=== PATIENT | male | born 1975 | race Caucasian/White ===

== ENCOUNTER 2019-09-10 16:04 | Inpatient (IN) | payer MEDICARE, MEDICAID, OTHER ==
[2019-09-10 17:07] VITALS: BMI 24.2
[2019-09-10] MEDS ORDERED: Triple Antibiotic Oint 1 GM Packet TOP PRN (18:26)
[2019-09-10] MEDS ORDERED: Bisacodyl 10 MG SUPP PR PRN (18:26)
--- NOTE | 2019-09-10 19:02 | HP ---
HISTORY OF PRESENT ILLNESS: Mr. Metz is a 44-year-old white male from the [facility] with mental retardation and cerebral palsy. He was admitted to [facility] from the [facility] with symptoms of cough and hypoxia. He was admitted with diagnosis of septic shock, requiring pressors; acute hypoxic respiratory failure, requiring intubation; polymicrobial left lower lobe pneumonia secondary to aspiration; polymicrobial cystitis; and acute on chronic anemia. He was noted to be COVID 19 negative. He is also anemic, and he required a unit of packed red blood cells at [facility].. He was admitted to the intensive care unit, and since had a PEG tube, he has had enteral feedings. His enteral feedings include Osmolite 1.2 at 60mL to 50 mL 24 hours a day and free water flushes of 200 mL every 8 hours with 30ml before and after meds. He has been stabilized and now was transferred to [facility] for physical therapy and occupational therapy and to finish his Levaquin 500 mg orally once a day through September 14 and follow his cefepime 1 g q 8hrs through September 14. PAST MEDICAL HISTORY: Extensive. 1. Abnormal results of liver function studies. 2. Acute respiratory failure with hypoxia. 3. Altered mental status. 4. Chronic anemia. 5. Bacteriuria. 6. Black stools. 7. History of Clostridium difficile infection in the past. 8. Compression fracture of vertebral column. 9. Cutaneous abscess of the groin. 10. Diarrhea. 11. Duodenitis without bleeding. 12. Dysphagia. 13. GERD. 14. Hypothermia. 15. Hypothyroidism. 16. Impacted cerumen. 17. Incontinent of bowel. 18. Incontinent of urine. 19. Fatigue and malaise. 20. Malodorous urine. 21. Melena. 22. Mental retardation. 23. Normocytic anemia. 24. Oropharyngeal dysphagia. 25. Osteoarthritis. 26. Osteoporosis. 27. Pneumonia. 28. Profound intellectual disabilities. 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 30. Recurrent urinary tract infections. 31. Seizure disorder. 32. Sialorrhea. 33. Sinus bradycardia. 34. Sleep-related bruxism. 35. Speech impairment. 36. Tetraplegic cerebral palsy. 37. Urinary continence. PAST SURGICAL HISTORY: 1. Cholecystectomy. 2. . 3. Esophagoscopy with percutaneous gastrostomy tube placement. 4. Fracture surgery. 5. Hernia repair. 6. VNS implant/replacement. FAMILY HISTORY: Unobtainable since the patient is nonverbal. [facility] [employer] is Kyleigh Govea [phone]! ALLERGIES: THE PATIENT IS NOTED TO BE ALLERGIC TO THE FOLLOWINGS: 1. ADHESIVE. 2. CARBAMAZEPINE. 3. ESLICARBAZEPINE. 4. LACTOSE. 5. NSAIDS. SOCIAL HISTORY: Reveals the patient is unable to smoke or drink alcohol. He is totally dependent on care from his caregivers at the [facility]. REVIEW OF SYSTEMS: Unable to be accomplished because the patient is unable to speak. PHYSICAL EXAMINATION: GENERAL: This is an appropriate looking 44-year-old white male, who is lying on his right side, appearing at me as a walk in with blue eyes. He seems somewhat inquisitive and follows me around as I move around the room, but does not speak. I do ask him questions, he does not speak. He does grunt a little bit, but does not seem to know how to speak. HEENT: Reveals normocephalic and nontraumatic cranium. The pupils are equally round and reactive. Extraocular movements are intact. The nose and throat are somewhat dry, but clear. NECK: Supple without masses, nodes, or bruits. CHEST: Clear to auscultation. The patient does have occasional cough and occasionally, he has some rhonchi and decreased breath sounds in both lower lobes. HEART: Reveals a regular rate and rhythm without murmurs, gallops, or rubs. ABDOMEN: Reveals a PEG tube which has been replace, with a new tube, midline upper area. No rebound or guarding is noted. Normal bowel sounds are heard in all 4 quadrants. : Grossly unremarkable. EXTREMITIES: Reveal bilateral very pale with muscle wasting. The patient does have early flexion contractures of both lower extremities. The patient tends to grunt when I move his extremities. No clubbing, cyanosis, or edema is noted. ASSESSMENT & PLAN: 1. Aspiration pneumonia due to regurgitated gastric secretions. 2. Hypothyroidism. 3. Dysphagia. 4. PEG tube placement. 5. Acute respiratory failure with hypoxia. 6. Urinary tract infection. 7. Intellectual disability. 8. Acute cystitis without hematuria. 9. Pneumonia of both lungs secondary to Pseudomonas species. 10. Sinus bradycardia. 11. COVID-19 ruled out. 12. The patient is status post ICU management with pressors until that was extubated on 09/01/2019. 13. Continue IV cefepime daily q 8hrs, through September 14. 14. Continue Levaquin 500 mg orally daily until September 14. 15. Lactobacillus. 16. Monitor the patient for anemia. 17. Tube feedings. 18. DVT prophylaxis with SCDs. 19. [facility] 20. Full code Job ID: [id number] MTDD
[2019-09-10] MEDS ORDERED: DIAZEPAM 15 MG PR PRN (19:15)
[2019-09-10] MEDS ORDERED: PERAMPANEL 12 MG PER TUBE SCH (21:00)
[2019-09-10] MEDS ORDERED: GLYCOPYRROLATE 1 MG PER TUBE SCH (21:00)
[2019-09-10] MEDS: Nystatin Powder 15 GM BOT TOP SCH (21:38)
[2019-09-10] MEDS: Cefepime 1 GM in Sodium Chloride 0.9% 100 ML IVPB SCH (21:38)
[2019-09-10] MEDS: levETIRAcetam 500 mg/5 ml Oral Solution PER TUBE SCH (21:38)
[2019-09-10] MEDS: Acetaminophen 325 MG TAB PER TUBE PRN (21:39)
[2019-09-10] MEDS: Senokot S 8.6-50 MG TAB PER TUBE SCH (21:39)
[2019-09-10] MEDS: Lacosamide 50 mg Tablet PER TUBE SCH (21:39)
[2019-09-10] MEDS: Simethicone Chewable 80 MG TAB PER TUBE SCH (21:39)
[2019-09-10] MEDS ORDERED: Cefepime 1 GM VIAL IVPB SCH (22:00)
[2019-09-11] MEDS: Cefepime 1 GM in Sodium Chloride 0.9% 100 ML IVPB SCH ×3 (05:42→21:25)
[2019-09-11 06:03] LABS: ALT (SGPT) 35 U/L (8-55); AST (SGOT) 22 U/L (5-34); Albumin 3.1 g/dL (3.5-5.0); Alkaline Phosphatase 154 U/L (40-110); Anion Gap 13 mmol/L (10-20); BUN (Urea Nitrogen) 19 mg/dL (8.9-20.6); Bilirubin, Total 0.2 mg/dL (0.2-1.2); Calc. Creatinine Clearance 142 mL/min (70-130); Calcium 9.3 mg/dL (7.8-10.44); Carbon Dioxide 29 mmol/L (22-29); Chloride 103 mmol/L (98-107); Estimated GFR-MDRD Greater than 90; Globulin 3.8 g/dL (2.4-3.5); Glucose 92 mg/dL (70-105); Potassium 4.5 mmol/L (3.5-5.1); Protein, Total 6.9 g/dL (6.0-8.3); Sodium 140 mmol/L (136-145)
[2019-09-11 06:12] LABS: #Basophils 0.1 thou/uL (0.0-0.2); #Eosinphils 0.3 thou/uL (0.0-0.7); #Lymphocytes 1.4 thou/uL (1.20-3.40); #Monocytes 0.7 thou/uL (0.11-0.59); #Neutrophils 3.4 thou/uL (1.40-6.50); %Basophils 0.9 % (0.0-1.0); %Eosinophils 4.3 % (0.0-10.0); %Lymphocytes 24.8 % (21.0-51.0); %Monocytes 11.8 % (0.0-10.0); %Neutrophils 58.1 % (42.0-75.0); Anisocytosis MODERATE=16-30 cells (100X) (0-5/hpf); Band 6 % (5-11); Eosinophils 4 % (0-10); Hemoglobin 8.3 g/dL (14.0-18.0); Hypochromia SLIGHT = 6-15 cells (100X) (0-5/hpf); Large Platelets SLIGHT; Lymphocytes 22 % (21-51); MDiff Complete? YES; Mean Corpuscular HGB CONC 32.1 g/dL (32.0-36.0); Mean Corpuscular Hemoglobin 31.8 pg (27.0-31.0); Mean Platelet Volume 9.1 fL (7.4-10.4); Monocytes 8 % (0-10); Neutrophil 59 % (42-75); Nucleated RBC 1 % (0); Platelet Count 250 thou/uL (130-400); Platelet Morphology Comment Appears Adequate; Poikilocytosis MODERATE=16-30 cells (100X) (0-5/hpf); RBC Distribution Width 18.4 % (11.5-14.5); Reactive Lymphocytes 1 % (0-10); Red Blood Cell (RBC) Count 2.61 mill/uL (4.70-6.10); Stomatocytes MODERATE= 6-15 cells (100X) (0-1/hpf); Target Cells MODERATE= 6-15 cells (100X) (0-1/hpf); White Blood Cell (WBC) Count 5.8 thou/uL (4.8-10.8)
[2019-09-11] MEDS: Floranex Packet PER TUBE SCH (09:53)
[2019-09-11] MEDS: levETIRAcetam 500 mg/5 ml Oral Solution PER TUBE SCH ×2 (09:53→21:26)
[2019-09-11] MEDS: Polyethylene Glycol 3350 17 GM Packet PER TUBE SCH (09:53)
[2019-09-11] MEDS: Pantoprazole 40 MG GRANULES PACKET PER TUBE SCH ×2 (09:53→21:23)
[2019-09-11] MEDS: Simethicone Chewable 80 MG TAB PER TUBE SCH ×3 (09:54→21:24)
[2019-09-11] MEDS: Folic Acid 1 MG TAB PER TUBE SCH (09:54)
[2019-09-11] MEDS: Senokot S 8.6-50 MG TAB PER TUBE SCH ×2 (09:54→21:24)
[2019-09-11] MEDS: Lacosamide 50 mg Tablet PER TUBE SCH ×2 (09:54→21:23)
[2019-09-11] MEDS: Levothyroxine Sodium 50 MCG TAB PER TUBE SCH (09:54)
[2019-09-11] MEDS: Nystatin Powder 15 GM BOT TOP SCH ×2 (10:23→21:24)
[2019-09-11] MEDS ORDERED: Sodium Chloride 0.9% 20 ML ONE (14:31)
[2019-09-11 17:50] LABS: Bilirubin Negative (Negative); Blood, Urine Negative (Negative); Clarity Clear (Clear); Glucose, Urine (Dipstick) Negative (Negative); Leukocyte Negative (Negative); Nitrite Negative (Negative); Protein, Urine (Dipstick) Negative (Neg-Trace); Urobilinogen 0.2 mg/dL (Less than 2)
[2019-09-11 18:07] LABS: Bacteria/HPF None Seen HPF (None Seen); RBC/HPF None Seen HPF (0-3); Squamous Epithelial 0-3 HPF (0-3); WBC/HPF None Seen HPF (0-3)
--- NOTE | 2019-09-11 19:36 | PRG ---
DATE OF SERVICE: 09/11/2019 SUBJECTIVE: Mr. Metz is a very pleasant 44-year-old white male who lives at [facility]. He has long-term history of mental retardation and cerebral palsy. He is admitted to [facility] with symptoms of hypoxemia and respiratory failure. He is diagnosed with septic shock, requiring pressures, requiring intubation, and requiring IV antibiotics. He is diagnosed with left lower lobe pneumonia, which eventually was bilateral pneumonia secondary to aspiration. He had also a polymicrobial cystitis and acute on chronic anemia. He was tested for COVID-19 and was negative. He did receive a unit of packed red blood cells while he was there. He was eventually extubated and his feedings revealed Osmolite 1.2 at 60 mL q.24 hours and 200 mL flushes every 8 hours with normal saline. The patient has been at [facility] for approximately 24 hours. LABORATORY DATA: Laboratories reveal white count 5800, hemoglobin 8.3, hematocrit 25.9, platelet count 250,000. The patient has 11.8 monocytes. Sodium is 140, potassium 4.5, chloride 103, carbon dioxide 29, which are all normal. The patient's BUN is 19, creatinine 0.63. GFR is greater than 90. Glucose is 90. Alkaline phosphatase is slightly elevated at 154 with albumin low at 3.1, globulin high at 3.8. Urinalysis was done, which was unremarkable. OBJECTIVE: VITAL SIGNS: Reveal blood pressure 124/76. The patient's oxygen saturation ranges from 91% to 98% on 2 L nasal cannula, which is pretty steady over the day. T-max was 97.4. Pulse was 78, and respirations was 20, all day. GENERAL: This is a well-developed, well-nourished, awake and very inquisitive 44-year-old white male, who looks at me and follows you as you go around the room and examined him. HEENT: Reveals normocephalic and nontraumatic cranium. Pupils equally round and reactive. Extraocular movements are intact. Nose and throat are dry. Multiple dental caries. Occasional grunt as have you seen. NECK: Supple without masses, nodes, or bruits. CHEST: Clear to auscultation. No cough is noted while I was in the room for approximately 15 to 20 minutes. The patient's decreased breath sounds are noted in both lower lobes, most likely because of shallow breathing. HEART: Reveals a regular rate and rhythm without murmurs, gallops, or rubs. ABDOMEN: Soft and nontender without organomegaly. Normal bowel sounds are heard in all 4 quadrants. PEG tube is in place midline, not draining, not red, not irritated. : Deferred. EXTREMITIES: Reveal no clubbing, cyanosis, or edema, but some muscle wasting and some lower extremity flexion contractures. ASSESSMENT AND PLAN: 1. Aspiration pneumonia secondary to regurgitated gastric secretions. 2. Sepsis. 3. Dysphagia. 4. Hypothyroidism. 5. Percutaneous endoscopic gastrostomy tube. 6. Urinary tract infection. 7. Intellectual disability. 8. Acute cystitis without hematuria, resolved. 9. Pneumonia of both lungs secondary to Pseudomonas species, presently still on antibiotics through this September 14. 10. Sinus bradycardia. 11. COVID-19 ruled out. 12. Status post ICU management with pressors and extubation on 09/01/2019. 13. Continue IV cefepime q.8 hours through September 14. 14. Continue Levaquin 500 mg orally through September 14. 15. Lactobacillus. 16. Monitor the patient for anemia. 17. Tube feedings. 18. Deep venous thrombosis prophylaxis. Job ID: [id number] [facility]
[2019-09-11] MEDS: Acetaminophen 325 MG TAB PER TUBE PRN (21:23)
[2019-09-12] MEDS: Cefepime 1 GM in Sodium Chloride 0.9% 100 ML IVPB SCH ×3 (05:37→21:26)
[2019-09-12] MEDS: Floranex Packet PER TUBE SCH (09:18)
[2019-09-12] MEDS: Lacosamide 50 mg Tablet PER TUBE SCH ×2 (09:18→21:28)
[2019-09-12] MEDS: Pantoprazole 40 MG GRANULES PACKET PER TUBE SCH ×2 (09:18→21:27)
[2019-09-12] MEDS: levETIRAcetam 500 mg/5 ml Oral Solution PER TUBE SCH ×2 (09:18→21:27)
[2019-09-12] MEDS: Senokot S 8.6-50 MG TAB PER TUBE SCH ×2 (09:19→21:28)
[2019-09-12] MEDS: Levothyroxine Sodium 50 MCG TAB PER TUBE SCH (09:19)
[2019-09-12] MEDS: Simethicone Chewable 80 MG TAB PER TUBE SCH ×3 (09:19→21:27)
[2019-09-12] MEDS: Nystatin Powder 15 GM BOT TOP SCH ×2 (09:19→21:27)
[2019-09-12] MEDS: Folic Acid 1 MG TAB PER TUBE SCH (09:19)
[2019-09-12] MEDS: Polyethylene Glycol 3350 17 GM Packet PER TUBE SCH (09:20)
--- NOTE | 2019-09-12 18:00 | PRG ---
DATE OF SERVICE: 09/12/2019 SUBJECTIVE: Mr. Metz is a 44-year-old white male, who is a resident at [facility] in [place], [place]. Unfortunately, he was admitted to the [facility] with symptoms of hypoxemia and respiratory failure. He was diagnosed with septic shock, placed in ICU requiring pressors, intubation, and IV antibiotics. He eventually stabilized, extubated, diagnosed with left lower lobe pneumonia. This is thought to be secondary to aspiration. He also had a polymicrobial cystitis, [id number] anemia, and renal insufficiency. His COVID-19 test was unremarkable. He received packed red blood cells because of his anemia. He was started on Osmolite 1.2 at 60 mL/hour along with 200 mL flush of water every 8 hours with 30 mL before and after medications. He was transferred to [facility] to finish his IV antibiotics, which finishes Sunday. OBJECTIVE: VITAL SIGNS: Today reveal blood pressure 145/60, pulse 82, respirations 20, O2 saturation 94% to 95% on 3 L nasal cannula, temperature is 98.2. GENERAL: This is a well-developed, well-nourished, very pleasant, white male, who is not agitated or aggravated at all. He is very calm again today. He looks at me as I entered the room. He does not speak. He is unable to answer any questions. HEENT: Reveal normocephalic and nontraumatic cranium. Pupils are equally round and reactive. Extraocular movements are intact. Nose and throat are slightly dry. NECK: Supple without masses, nodes, or bruits. CHEST: Clear to auscultation. No rales, rhonchi, or wheezes are noted. No cough is noted while I was in the room again for about 15 minutes. Breath sounds are distant. HEART: Reveals a regular rate and rhythm without murmurs, gallops, or rubs. ABDOMEN: Soft and nontender without organomegaly. Normal bowel sounds are noted. No rebound or guarding is noted. PEG tube is normal in place, midline, working well. GENITOURINARY: Deferred. EXTREMITIES: Reveal no clubbing, cyanosis, or edema. He does have muscle wasting. ASSESSMENT AND PLAN: 1. Aspiration pneumonia secondary to regurgitated gastric secretions. 2. Sepsis. 3. Percutaneous endoscopic gastrostomy tube. 4. Dysphagia. 5. Hypothyroidism. 6. Urinary tract infection, resolved. 7. Intellectual disability. 8. Acute cystitis with hematuria, resolved. 9. Pneumonia of both lungs secondary to some pseudomonas, presently still on antibiotics through September 14. 10. Sinus bradycardia. 11. COVID-19 ruled out. 12. Status post ICU management with pressors and extubation on 09/01/2019. 13. Continue IV cefepime q.8 hours through September 14. 14. Continue Levaquin 500 mg orally through September 14. 15. Lactobacillus. 16. Monitor the patient for anemia. 17. Tube feedings. 18. Deep venous thrombosis prophylaxis. Job ID: [id number]
[2019-09-12] MEDS: Acetaminophen 325 MG TAB PER TUBE PRN (21:34)
[2019-09-13] MEDS: Cefepime 1 GM in Sodium Chloride 0.9% 100 ML IVPB SCH ×3 (05:11→22:20)
[2019-09-13] MEDS: Simethicone Chewable 80 MG TAB PER TUBE SCH ×3 (09:17→21:00)
[2019-09-13] MEDS: Floranex Packet PER TUBE SCH (09:17)
[2019-09-13] MEDS: levETIRAcetam 500 mg/5 ml Oral Solution PER TUBE SCH ×2 (09:17→20:59)
[2019-09-13] MEDS: Pantoprazole 40 MG GRANULES PACKET PER TUBE SCH ×2 (09:17→20:59)
[2019-09-13] MEDS: Polyethylene Glycol 3350 17 GM Packet PER TUBE SCH (09:17)
[2019-09-13] MEDS: Senokot S 8.6-50 MG TAB PER TUBE SCH ×2 (09:18→20:59)
[2019-09-13] MEDS: Levothyroxine Sodium 50 MCG TAB PER TUBE SCH (09:18)
[2019-09-13] MEDS: Folic Acid 1 MG TAB PER TUBE SCH (09:18)
[2019-09-13] MEDS: Lacosamide 50 mg Tablet PER TUBE SCH ×2 (09:18→20:58)
[2019-09-13] MEDS: Acetaminophen 325 MG TAB PER TUBE PRN (09:18)
[2019-09-13] MEDS: Nystatin Powder 15 GM BOT TOP SCH ×2 (09:56→20:59)
--- NOTE | 2019-09-13 15:01 | PRG ---
DATE OF SERVICE: 09/13/2019 SUBJECTIVE: Mr. Metz is resting in bed, not in any distress. Discussed with nursing. He apparently is doing well. He is not verbally responsive due to intellectual disability. He is tolerating his feedings and his antibiotics. OBJECTIVE: VITAL SIGNS: He is afebrile. Temperature is 97.8, pulse 56, respirations 20, oxygen saturation 92% on 2 L, blood pressure 104/59. CARDIOVASCULAR: S1 and S2 plus. RESPIRATORY: Normal vesicular breath sounds. Poor air entry. ABDOMEN: Soft and nontender. PEG tube site is healthy. EXTREMITIES: Without cyanosis or clubbing. Right subclavian central line site is healthy. IMPRESSION: 1. Pneumonia, on IV antibiotics. 2. Dysphagia, requiring PEG tube placement. 3. Hypothyroidism. 4. Gastroesophageal reflux disease. 5. Cerebral palsy with mental retardation. PLAN: 1. Continue current medications including antibiotics. 2. Tube feedings with aspiration precautions. 3. Continue home medications. 4. PEG tube care. 5. Monitor respiratory status. 6. Routine laboratory values. 7. Discussed with nursing. Job ID: [id number]
[2019-09-14] MEDS: Cefepime 1 GM in Sodium Chloride 0.9% 100 ML IVPB SCH ×3 (05:15→20:59)
[2019-09-14 05:40] LABS: #Basophils 0.1 thou/uL (0.0-0.2); #Eosinphils 0.2 thou/uL (0.0-0.7); #Lymphocytes 2.3 thou/uL (1.20-3.40); #Monocytes 1.2 thou/uL (0.11-0.59); #Neutrophils 6.4 thou/uL (1.40-6.50); %Basophils 0.8 % (0.0-1.0); %Eosinophils 1.7 % (0.0-10.0); %Monocytes 11.4 % (0.0-10.0); %Neutrophils 63.1 % (42.0-75.0); Anisocytosis SLIGHT = 6-15 cells (100X) (0-5/hpf); Hypochromia SLIGHT = 6-15 cells (100X) (0-5/hpf); MDiff Complete? YES; Macrocytosis SLIGHT = 6-15 cells (100X) (0-5/hpf); Mean Corpuscular HGB CONC 31.5 g/dL (32.0-36.0); Mean Platelet Volume 7.9 fL (7.4-10.4); Platelet Count 352 thou/uL (130-400); Platelet Morphology Comment Appears Adequate; Polychromasia SLIGHT = 2-3 cells (100X) (0-2/hpf); Red Blood Cell (RBC) Count 2.81 mill/uL (4.70-6.10); White Blood Cell (WBC) Count 10.1 thou/uL (4.8-10.8)
[2019-09-14 05:56] LABS: ALT (SGPT) 29 U/L (8-55); AST (SGOT) 22 U/L (5-34); Albumin 3.4 g/dL (3.5-5.0); Alkaline Phosphatase 133 U/L (40-110); Anion Gap 16 mmol/L (10-20); BUN (Urea Nitrogen) 23 mg/dL (8.9-20.6); Bilirubin, Total 0.2 mg/dL (0.2-1.2); Calc. Creatinine Clearance 121 mL/min (70-130); Calcium 9.4 mg/dL (7.8-10.44); Carbon Dioxide 24 mmol/L (22-29); Chloride 103 mmol/L (98-107); Estimated GFR-MDRD Greater than 90; Globulin 3.9 g/dL (2.4-3.5); Glucose 98 mg/dL (70-105); Potassium 4.6 mmol/L (3.5-5.1); Protein, Total 7.3 g/dL (6.0-8.3); Sodium 138 mmol/L (136-145)
[2019-09-14] MEDS: Acetaminophen 325 MG TAB PER TUBE PRN (06:43)
[2019-09-14] MEDS ORDERED: Albuterol Sulfate 2.5 mg/3 ml Neb NEB PRN (07:54)
[2019-09-14] MEDS: Simethicone Chewable 80 MG TAB PER TUBE SCH ×3 (09:47→20:48)
[2019-09-14] MEDS: levETIRAcetam 500 mg/5 ml Oral Solution PER TUBE SCH ×2 (09:47→20:48)
[2019-09-14] MEDS: Folic Acid 1 MG TAB PER TUBE SCH (09:47)
[2019-09-14] MEDS: Lacosamide 50 mg Tablet PER TUBE SCH ×2 (09:47→20:48)
[2019-09-14] MEDS: Pantoprazole 40 MG GRANULES PACKET PER TUBE SCH ×2 (09:47→20:48)
[2019-09-14] MEDS: Floranex Packet PER TUBE SCH (09:47)
[2019-09-14] MEDS: Levothyroxine Sodium 50 MCG TAB PER TUBE SCH (09:48)
[2019-09-14] MEDS: Polyethylene Glycol 3350 17 GM Packet PER TUBE SCH (09:48)
[2019-09-14] MEDS: Nystatin Powder 15 GM BOT TOP SCH ×2 (09:48→20:48)
[2019-09-14] MEDS: Senokot S 8.6-50 MG TAB PER TUBE SCH ×2 (09:48→20:48)
[2019-09-14] MEDS ORDERED: Lorazepam 2 MG/ML VIAL ONE ×3 (11:06→15:05)
[2019-09-14] MEDS: Lorazepam 2 MG/ML VIAL SLOW IVP PRN ×2 (11:19→11:26)
[2019-09-14] MEDS ORDERED: Sodium Chloride 0.9% 90 ML ONE (13:46)
[2019-09-14] MEDS ORDERED: Lorazepam 2 MG/ML VIAL SLOW IVP PRN (15:05)
--- NOTE | 2019-09-14 16:35 | PRG ---
DATE OF SERVICE: 09/14/2019 SUBJECTIVE: Mr. Metz started having seizures this morning and required IV Ativan. He required a total of 2 doses. I advised nursing to load him with Dilantin if he has another seizure. Just before I came to examine him here, he apparently had another seizure, so he has been loaded with fosphenytoin. He apparently also had some crackles in his lungs and he spiked a temperature of 100.3 early this morning. He did test negative for COVID-19, but that was early in this disease process, so I have asked him to do another stat COVID-19 serology. I have also asked staff to strictly follow droplet precautions and to wear hair protection and face arechiga when they go in to take care of the patient until the results are back. I am going to hold off on starting him on empiric hydroxychloroquine or azithromycin at this point. He is a full code. OBJECTIVE: VITAL SIGNS: His vital signs are stable on 4 L. He is currently temperature free. His heart rate is 105, respirations 22, oxygen saturation 94% on 4 L, blood pressure 113/63. CARDIOVASCULAR: Sinus tachycardia. RESPIRATORY: Scattered rhonchi and transmitted sounds. ABDOMEN: Soft, nontender. PEG tube site is healthy. EXTREMITIES: Without cyanosis or clubbing. CENTRAL NERVOUS SYSTEM: The patient is really not responsive, but it is no change from before. LABORATORY DATA: Laboratory values from this morning shows a white count of 10.1, hemoglobin and hematocrit of 9 and 28.5. Macrocytosis, lymphocyte and neutrophil ratio . Sodium 138, potassium 4.6, BUN and creatinine are 23 and 0.74. IMPRESSION: 1. Temperature spike in someone with pneumonia, high-risk group. This is his 9th day of antibiotic and he is still spiking a temperature and that is why I ordered the COVID-19 serology to be repeated again and to follow strict droplet precautions. 2. Breakthrough seizures. We will continue Ativan p.r.n., but I have loaded him with fosphenytoin 1 g. 3. Intellectual disability due to cerebral palsy. 4. Dysphagia, requiring PEG tube feeding. 5. Significant deconditioning. 6. Hypothyroidism. 7. Gastroesophageal reflux disease. PLAN: 1. Continue current medications. 2. Seizure precautions. 3. Tube feeds. 4. Await COVID-19 testing. 5. Follow strict droplet precautions. 6. Recheck CBC and BMP in the morning. 7. We will have Dr. Morris, who knows the family discuss about code status in case he deteriorates. Job ID: [id number]
[2019-09-15] MEDS: Cefepime 1 GM in Sodium Chloride 0.9% 100 ML IVPB SCH ×3 (05:58→21:14)
[2019-09-15 05:59] LABS: #Basophils 0.1 thou/uL (0.0-0.2); #Eosinphils 0.2 thou/uL (0.0-0.7); #Lymphocytes 2.3 thou/uL (1.20-3.40); #Monocytes 1.6 thou/uL (0.11-0.59); #Neutrophils 7.2 thou/uL (1.40-6.50); %Basophils 1.2 % (0.0-1.0); %Eosinophils 1.7 % (0.0-10.0); %Monocytes 14.2 % (0.0-10.0); Hemoglobin 8.5 g/dL (14.0-18.0); Mean Corpuscular HGB CONC 31.4 g/dL (32.0-36.0); Mean Corpuscular Hemoglobin 32.2 pg (27.0-31.0); Mean Platelet Volume 7.1 fL (7.4-10.4); Platelet Count 340 thou/uL (130-400); RBC Distribution Width 21.7 % (11.5-14.5); Red Blood Cell (RBC) Count 2.64 mill/uL (4.70-6.10); White Blood Cell (WBC) Count 11.4 thou/uL (4.8-10.8)
[2019-09-15 06:00] LABS: Hypochromia SLIGHT = 6-15 cells (100X) (0-5/hpf); MDiff Complete? YES; Macrocytosis MARKED = >30 cells (100X) (0-5/hpf); Platelet Morphology Comment Appears Adequate; Polychromasia SLIGHT = 2-3 cells (100X) (0-2/hpf)
[2019-09-15 06:02] LABS: Anion Gap 11 mmol/L (10-20); BUN (Urea Nitrogen) 30 mg/dL (8.9-20.6); Calc. Creatinine Clearance 115 mL/min (70-130); Calcium 8.7 mg/dL (7.8-10.44); Carbon Dioxide 27 mmol/L (22-29); Chloride 105 mmol/L (98-107); Estimated GFR-MDRD Greater than 90; Glucose 98 mg/dL (70-105); Potassium 4.4 mmol/L (3.5-5.1); Sodium 139 mmol/L (136-145)
[2019-09-15 06:44] LABS: Dilantin 11.2 ug/mL (10.0-20.0)
[2019-09-15] MEDS: Lacosamide 50 mg Tablet PER TUBE SCH ×2 (08:48→21:11)
[2019-09-15] MEDS: Levothyroxine Sodium 50 MCG TAB PER TUBE SCH (08:48)
[2019-09-15] MEDS: levETIRAcetam 500 mg/5 ml Oral Solution PER TUBE SCH ×2 (08:49→21:11)
[2019-09-15] MEDS: Senokot S 8.6-50 MG TAB PER TUBE SCH ×2 (08:49→21:13)
[2019-09-15] MEDS: Simethicone Chewable 80 MG TAB PER TUBE SCH ×3 (08:49→21:13)
[2019-09-15] MEDS: Folic Acid 1 MG TAB PER TUBE SCH (08:49)
[2019-09-15] MEDS: Floranex Packet PER TUBE SCH (08:49)
[2019-09-15] MEDS: Pantoprazole 40 MG GRANULES PACKET PER TUBE SCH ×2 (08:49→21:12)
[2019-09-15] MEDS: Nystatin Powder 15 GM BOT TOP SCH ×2 (08:50→21:12)
[2019-09-15] MEDS: Polyethylene Glycol 3350 17 GM Packet PER TUBE SCH (10:03)
--- NOTE | 2019-09-15 13:37 | RAD ---
PORTABLE CHEST 1 VIEW: DATE: 09/15/2019. TIME: 1:16 PM. HISTORY: Increased congestion. FINDINGS/IMPRESSION: The heart size is borderline. There is a right-sided Port-A-Cath with tip in the projection of the c avoatrial junction. A left-sided neurostimulator device is seen with lead traversing superiorly into the neck. The lungs are well expanded without lobar consolidation, pneumothoraces, eugenio pulmonary edema, or large effusions. POS: JANINEA
[2019-09-15] MEDS ORDERED: Activase 2 MG VIAL CATH SCH (14:30)
[2019-09-15] MEDS ORDERED: Sterile Water 10 ML VIAL IVP SCH (14:30)
[2019-09-15] MEDS ORDERED: Sodium Chloride 0.9% 50 ML ONE (16:28)
--- NOTE | 2019-09-15 17:01 | PRG ---
DATE OF SERVICE: 09/15/2019 SUBJECTIVE: Mr. Metz is a well-developed 44-year-old, resident of [facility] in [place]. He has a history of PEG tube feeding and severe intellectual disability. Unfortunately, he became hypoxic and went into respiratory failure. He was diagnosed with septic shock, transferred to [facility], placed in the intensive care unit, requiring pressors, intubation, and IV antibiotics. He eventually stabilized, extubated, diagnosed with left lower lobe pneumonia. This was thought to be secondary to aspiration. He also had polymicrobial cystitis, shkxe-ok-shrbway anemia, and renal insufficiency. His COVID-19 test was unremarkable. He was anemic and received one packed red blood cells. He typically takes Osmolite 1.5 95 mL an hour from 6 o'clock until 12 o'clock and then he has a 3 hour rest and then his Osmolite 1.5 is restarted until he gets a total of a 1000 mL a day. [facility] changed that to Osmolite 1.2 at 60 mL an hour with 200 mL flush of water every 8 hours and 30 mL before and after medications. He eventually was stabilized and transferred to [facility] to finish out his IV antibiotics, which finishes tonight. Unfortunately, the patient had 2 seizures yesterday and then had one more seizure while Dr. Craig was in the room. The patient was loaded up on fosphenytoin and this morning his Dilantin level was 11.2. Although he was postictal, has begun to wake up a lot more today. He seems to be getting back to his normal. We removed him off 6 L per mask down to 3 L nasal cannula, saturating at 95% to 96% at this time. Lactic acid was done this morning, also is 1.3. The chest x-ray was unremarkable. White count had been elevated to 11,400 with a hemoglobin 8.5, hematocrit 27.6. Sodium 139, potassium 4.4, his BUN is 30 with creatinine 0.78, sugar of 98. OBJECTIVE: VITAL SIGNS: Not in the chart yet, but last night to 108/59, this morning he was somewhat hypotensive, O2 saturations a while ago while I was in room on 3 L was 95% to 96%, pulse 83 to 95, respirations 20, T-max 97.4. GENERAL: This is a well-developed, well-nourished, very pleasant 44-year-old white male, who is unable to answer, but does open his eyes and looks around, is back to his normal from when I saw on Sunday. Seems to be back to his baseline. HEENT: Reveals normocephalic and nontraumatic cranium. The pupils are equally round and reactive. Extraocular movements are intact. Nose and throat are slightly dry. CHEST: Clear to auscultation. No rales, rhonchi, or wheezes are noted. The patient does have an occasional cough, which was a deeper cough than last week. Breath sounds are still distant. The bases seem to be fairly clear this morning. HEART: Reveals a regular rate and rhythm without murmurs, gallops, or rubs. ABDOMEN: Soft, nontender without organomegaly. Normal bowel sounds are noted in all 4 quadrants. No rebound or guarding is noted. New PEG tube is in place and seems to be working well. GENITOURINARY: Deferred. EXTREMITIES: Reveal no clubbing, cyanosis, or edema. ASSESSMENT AND PLAN: 1. Seizure disorder with 3 seizures on Sunday morning. 2. Recent history of aspiration pneumonia and respiratory failure secondary to regurgitated gastric secretions. 3. Sepsis. 4. Percutaneous endoscopic gastrostomy tube. 5. Dysphagia. 6. Hypothyroidism. 7. Urinary tract infection, resolved. 8. Intellectual disability, severe. 9. Acute cystitis with hematuria, resolved. 10. Pneumonia with both lungs secondary to Pseudomonas, presently on antibiotics tonight, but we will most likely send that for 3 more days. 11. Sinus bradycardia. 12. COVID-19 ruled out, but yesterday Dr. Craig did order a second COVID test. 13. Status post ICU management with pressors and extubation on 09/01/2019. 14. We will continue his IV cefepime q.8 hours through September 18 and continue his Levaquin 500 mg through September 18. 15. Lactobacillus. 16. Monitor the patient for anemia. 17. Continue tube feedings. 18. Deep venous thrombosis prophylaxis. Job ID: [id number]
[2019-09-16 05:54] LABS: Band 12 % (5-11); Eosinophils 4 % (0-10); Hemoglobin 8.6 g/dL (14.0-18.0); Hypochromia SLIGHT = 6-15 cells (100X) (0-5/hpf); Lymphocytes 34 % (21-51); MDiff Complete? YES; Macrocytosis MODERATE=16-30 cells (100X) (0-5/hpf); Mean Corpuscular HGB CONC 31.7 g/dL (32.0-36.0); Mean Corpuscular Hemoglobin 32.7 pg (27.0-31.0); Mean Platelet Volume 7.5 fL (7.4-10.4); Monocytes 6 % (0-10); Neutrophil 44 % (42-75); Platelet Count 330 thou/uL (130-400); Platelet Morphology Comment Appears Adequate; Polychromasia SLIGHT = 2-3 cells (100X) (0-2/hpf); RBC Distribution Width 20.8 % (11.5-14.5); Red Blood Cell (RBC) Count 2.61 mill/uL (4.70-6.10); White Blood Cell (WBC) Count 7.9 thou/uL (4.8-10.8)
[2019-09-16] MEDS: Cefepime 1 GM in Sodium Chloride 0.9% 100 ML IVPB SCH ×3 (05:57→20:46)
[2019-09-16 06:00] LABS: ALT (SGPT) 33 U/L (8-55); AST (SGOT) 68 U/L (5-34); Albumin 3.2 g/dL (3.5-5.0); Alkaline Phosphatase 125 U/L (40-110); Anion Gap 12 mmol/L (10-20); BUN (Urea Nitrogen) 24 mg/dL (8.9-20.6); Bilirubin, Total 0.2 mg/dL (0.2-1.2); Calc. Creatinine Clearance 145 mL/min (70-130); Calcium 9.1 mg/dL (7.8-10.44); Carbon Dioxide 28 mmol/L (22-29); Chloride 104 mmol/L (98-107); Dilantin 9.3 ug/mL (10.0-20.0); Estimated GFR-MDRD Greater than 90; Globulin 3.6 g/dL (2.4-3.5); Glucose 78 mg/dL (70-105); Potassium 4.5 mmol/L (3.5-5.1); Protein, Total 6.8 g/dL (6.0-8.3); Sodium 139 mmol/L (136-145)
[2019-09-16] MEDS: Nystatin Powder 15 GM BOT TOP SCH ×2 (09:55→20:45)
[2019-09-16] MEDS: Pantoprazole 40 MG GRANULES PACKET PER TUBE SCH ×2 (10:41→20:45)
[2019-09-16] MEDS: Folic Acid 1 MG TAB PER TUBE SCH (10:42)
[2019-09-16] MEDS: Floranex Packet PER TUBE SCH ×2 (10:43→10:47)
[2019-09-16] MEDS: Simethicone Chewable 80 MG TAB PER TUBE SCH ×3 (10:44→20:46)
[2019-09-16] MEDS: Lacosamide 50 mg Tablet PER TUBE SCH ×2 (10:45→20:44)
[2019-09-16] MEDS: Senokot S 8.6-50 MG TAB PER TUBE SCH ×2 (10:46→20:46)
[2019-09-16] MEDS: Levothyroxine Sodium 50 MCG TAB PER TUBE SCH (10:46)
[2019-09-16] MEDS: levETIRAcetam 500 mg/5 ml Oral Solution PER TUBE SCH ×2 (10:49→20:45)
[2019-09-16] MEDS: Polyethylene Glycol 3350 17 GM Packet PER TUBE SCH (10:50)
--- NOTE | 2019-09-16 13:25 | PRG ---
DATE OF SERVICE: 09/16/2019 SUBJECTIVE: Mr. Metz is a 44-year-old mentally challenged white male from [facility], who has a history of PEG tube feedings and severe intellectual disability. At the school, he became hypoxic and went into respiratory failure. He was transferred to [facility], where he was diagnosed with septic shock. He had to be treated in the Intensive Care Unit requiring pressors, intubation, and IV antibiotics. Eventually, he was stabilized and extubated. He did have left lower lobe pneumonia and then bilateral pneumonia. This was thought to be secondary to aspiration. He had polymicrobial cystitis, acute on chronic anemia, and renal insufficiency. He did have a COVID-19 done while at [facility] and we had one repeated this past weekend, which were both negative. He had been receiving a unit of packed red blood cells. Basically, he was stabilized and transferred to [facility] to finish out his IV antibiotics. The patient had several seizures on Sunday and Dr. Velez started him on Dilantin. He was loaded up and was placed on oxygen. Now, we are weaning his oxygen down. He is still saturating about 95% to 96%. His laboratories today were actually very good. OBJECTIVE: VITAL SIGNS: Reveal the patient is slightly hypotensive running 106/56 to 96/57, pulse 55 to 62, respirations 15 to 18, O2 saturation 96% to 99% on 2 L, T-max 95.4. GENERAL: Reveals a well-developed, well-nourished, very pleasant white male, in no apparent distress at this time. HEENT: Reveals normocephalic and nontraumatic cranium. Pupils are equal, round, and reactive. Extraocular movements are intact. Nose and throat are slightly dry. NECK: Supple without masses, nodes, or bruits. CHEST: Clear to auscultation. No rales. No rhonchi. No wheezes heard. No cough was elicited when I was in the room. The patient was awake and looking around back to his baseline. HEART: Reveals a regular rate and rhythm, but is distant. ABDOMEN: Soft and nontender without organomegaly. Normal bowel sounds are noted. PEG tube is in place, not red, not draining, not oozing and seems to be working well. GENITOURINARY: Deferred. EXTREMITIES: Reveal no clubbing, cyanosis, or edema. ASSESSMENT AND PLAN: 1. Seizure disorder on Sunday morning. 2. History of aspiration pneumonia and respiratory failure secondary to regurgitated gastric secretions. 3. Sepsis, resolved. 4. Percutaneous endoscopic gastrostomy tube. 5. Dysphagia. 6. Hypothyroidism. 7. Urinary tract infection, resolved. 8. Intellectual disability, severe. 9. Acute cystitis with hematuria, resolved. 10. Bilateral pneumonia with Pseudomonas, presently on antibiotics and will finish sometimes on Sunday. 11. Sinus bradycardia. 12. COVID-19 ruled out again, which came back this morning negative from Sunday. 13. Post intensive care unit management with pressors, extubation on 09/01/2019. 14. Continue IV cefepime and Levaquin through the . 15. Lactobacillus. 16. Monitor the patient for anemia. 17. Continue tube feedings. 18. Deep venous thrombosis prophylaxis. Job ID: [id number]
[2019-09-17] MEDS: Cefepime 1 GM in Sodium Chloride 0.9% 100 ML IVPB SCH ×3 (04:49→22:39)
[2019-09-17] MEDS: Levothyroxine Sodium 50 MCG TAB PER TUBE SCH (04:49)
[2019-09-17] MEDS: Folic Acid 1 MG TAB PER TUBE SCH (09:49)
[2019-09-17] MEDS: Lacosamide 50 mg Tablet PER TUBE SCH ×2 (09:49→22:44)
[2019-09-17] MEDS: Polyethylene Glycol 3350 17 GM Packet PER TUBE SCH (09:49)
[2019-09-17] MEDS: Senokot S 8.6-50 MG TAB PER TUBE SCH ×2 (09:50→22:44)
[2019-09-17] MEDS: Simethicone Chewable 80 MG TAB PER TUBE SCH ×3 (09:50→22:45)
[2019-09-17] MEDS: levETIRAcetam 500 mg/5 ml Oral Solution PER TUBE SCH ×2 (09:51→22:43)
[2019-09-17] MEDS: Nystatin Powder 15 GM BOT TOP SCH ×2 (09:52→22:45)
[2019-09-17] MEDS: Pantoprazole 40 MG GRANULES PACKET PER TUBE SCH ×2 (09:52→22:43)
--- NOTE | 2019-09-17 13:20 | PRG ---
DATE OF SERVICE: 09/17/2019 SUBJECTIVE: Mr. Metz is a well-developed, well-nourished, 44-year-old, severely mentally challenged white male from [facility]. Unfortunately, he became hypoxic and went into respiratory failure and was transferred to [facility] in [place]. He was diagnosed with septic shock, was admitted to the intensive care unit requiring intubation, IV pressors, and IV antibiotics. The patient was stabilized and extubated. He did have a left lower lobe pneumonia, which developed into bilateral pneumonia. This was thought to be attributed to aspiration. He also had polymicrobial cystitis, [id number] anemia, and acute renal insufficiency. It is noted that he does have a history of long-term PEG tube feedings secondary to dysphagia. He eventually was stabilized and transferred to [facility] to finish out his IV antibiotics, to the skilled unit. Unfortunately, on Sunday, the patient had multiple seizures. He had to be loaded up with Dilantin, and then, he has actually stabilized and recovered since then. OBJECTIVE: VITAL SIGNS: Today reveal blood pressure 114/54, O2 saturation 96% on 3 L, T-max 97.8, pulse 97, respirations 18. GENERAL: This is a well-developed, well-nourished, slightly obese, 44-year-old, intellectually deprived white male, in no apparent distress at this time. HEENT: Reveal normocephalic and nontraumatic cranium. Pupils are equally round and reactive. Extraocular movements are intact. Nose and throat are slightly dry, but clear. NECK: Supple without masses, nodes, or bruits. CHEST: Clear to auscultation. No rales, rhonchi, wheezes, or cough is noted this morning. The patient was awake and looking around inquisitively at me. He does not speak. HEART: Reveals a regular rate and rhythm without murmurs, gallops, or rubs. ABDOMEN: Soft and nontender without organomegaly. Normal bowel sounds are noted. PEG tube, which is a new tube that was replaced, is not draining, red, irritated, or oozing. GENITOURINARY: Deferred. EXTREMITIES: Reveal no clubbing, cyanosis, or edema. ASSESSMENT: 1. Seizure disorder on Sunday morning, and no more seizures since starting Dilantin. 2. History of aspiration pneumonia and respiratory failure secondary to regurgitated gastric secretions. 3. Sepsis, resolved. 4. Percutaneous endoscopic gastrostomy tube. 5. Dysphagia. 6. Hypothyroidism. 7. Urinary tract infection, resolved. 8. Intellectual disability, severe. 9. Acute cystitis with hematuria, resolved. 10. Bilateral pneumonia with Pseudomonas, presently on antibiotics and will finish on Sunday. 11. Sinus bradycardia. 12. COVID-19 ruled out with a negative result from Sunday. 13. Post intensive care unit management with pressors, extubation on 09/01/2019. 14. Continue IV cefepime and Levaquin through the . 15. Lactobacillus. 16. Continue to monitor the patient for anemia. 17. Continue tube feedings. 18. Deep venous thrombosis prophylaxis. Job ID: [id number]
[2019-09-18] MEDS: Cefepime 1 GM in Sodium Chloride 0.9% 100 ML IVPB SCH ×3 (05:15→21:46)
[2019-09-18 05:53] LABS: Anisocytosis SLIGHT = 6-15 cells (100X) (0-5/hpf); Band 16 % (5-11); Eosinophils 3 % (0-10); Hemoglobin 8.8 g/dL (14.0-18.0); Hypochromia MODERATE=16-30 cells (100X) (0-5/hpf); Lymphocytes 34 % (21-51); MDiff Complete? YES; Macrocytosis SLIGHT = 6-15 cells (100X) (0-5/hpf); Mean Corpuscular HGB CONC 31.2 g/dL (32.0-36.0); Mean Corpuscular Hemoglobin 32.4 pg (27.0-31.0); Mean Platelet Volume 7.3 fL (7.4-10.4); Monocytes 6 % (0-10); Neutrophil 41 % (42-75); Platelet Count 349 thou/uL (130-400); Platelet Morphology Comment Appears Adequate; Polychromasia SLIGHT = 2-3 cells (100X) (0-2/hpf); RBC Distribution Width 20.8 % (11.5-14.5); Red Blood Cell (RBC) Count 2.72 mill/uL (4.70-6.10); White Blood Cell (WBC) Count 5.6 thou/uL (4.8-10.8)
[2019-09-18 05:56] LABS: ALT (SGPT) 34 U/L (8-55); AST (SGOT) 54 U/L (5-34); Albumin 3.4 g/dL (3.5-5.0); Alkaline Phosphatase 131 U/L (40-110); Anion Gap 13 mmol/L (10-20); BUN (Urea Nitrogen) 20 mg/dL (8.9-20.6); Bilirubin, Total 0.2 mg/dL (0.2-1.2); Calc. Creatinine Clearance 136 mL/min (70-130); Calcium 8.8 mg/dL (7.8-10.44); Carbon Dioxide 26 mmol/L (22-29); Chloride 105 mmol/L (98-107); Estimated GFR-MDRD Greater than 90; Globulin 3.6 g/dL (2.4-3.5); Glucose 94 mg/dL (70-105); Potassium 4.2 mmol/L (3.5-5.1); Sodium 140 mmol/L (136-145)
[2019-09-18] MEDS: Levothyroxine Sodium 50 MCG TAB PER TUBE SCH (06:26)
[2019-09-18] MEDS: Polyethylene Glycol 3350 17 GM Packet PER TUBE SCH (09:20)
[2019-09-18] MEDS: levETIRAcetam 500 mg/5 ml Oral Solution PER TUBE SCH ×2 (09:20→21:43)
[2019-09-18] MEDS: Floranex Packet PER TUBE SCH (09:20)
[2019-09-18] MEDS: Senokot S 8.6-50 MG TAB PER TUBE SCH ×2 (09:21→21:42)
[2019-09-18] MEDS: Pantoprazole 40 MG GRANULES PACKET PER TUBE SCH ×2 (09:21→21:45)
[2019-09-18] MEDS: Folic Acid 1 MG TAB PER TUBE SCH (09:21)
[2019-09-18] MEDS: Lacosamide 50 mg Tablet PER TUBE SCH ×2 (09:21→21:44)
[2019-09-18] MEDS: Nystatin Powder 15 GM BOT TOP SCH ×2 (09:22→21:45)
--- NOTE | 2019-09-18 11:39 | PRG ---
DATE OF SERVICE: 09/18/2019 SUBJECTIVE: Mr. Metz is a well-developed, well-nourished 44-year-old, severely mentally challenged white male. He lives at [facility] in [place], [place]. Unfortunately, he became hypoxic with respiratory failure and had to be transferred to [facility] in [place]. His diagnosis is septic shock. He was then admitted to the Intensive Care Unit and required intubation. He also had IV pressors and IV antibiotics. Eventually, he was extubated and stabilized. He had a left lower lobe pneumonia, which developed into a bilateral pneumonia. It was thought to be attributed to probably aspiration. He also had a polymicrobial cystitis. This was treated with two antibiotics, cefepime a gram to q.8 hours and Levaquin. He will finish 10 days of dosing tomorrow. He will finish his cefepime at 12 o'clock tomorrow noon, so therefore he will be discharged back to the [facility] tomorrow afternoon. OBJECTIVE: VITAL SIGNS: Today reveal blood pressure 117/59, pulse 68 to 78, respirations 16 to 18, O2 saturation 92% to 96% on 2 L. T-max 97.8. GENERAL: This is a well-developed, well-nourished, very pleasant 44-year-old white male, in no apparent distress at this time. HEENT: Reveals normocephalic and nontraumatic cranium. Pupils equally round and reactive. Extraocular movements are intact. Nose and throat are slightly dry. NECK: Supple without masses, nodes, or bruits. CHEST: Clear to auscultation. No rales, rhonchi, wheezes are heard. HEART: Reveals a regular rate and rhythm without murmur, gallops, or rubs. ABDOMEN: Soft and nontender without organomegaly. Normal bowel sounds are noted. No rebound or guarding is noted. : Exam is deferred. EXTREMITIES: Reveal no clubbing, cyanosis, or edema. ASSESSMENT AND PLAN: 1. Seizure activity Sunday morning. No more seizures since then. He is on Dilantin 200 mg t.i.d. We will do an another Dilantin level tomorrow morning. 2. History of aspiration pneumonia and respiratory failure with bilateral pneumonia. 3. Sepsis resolved. 4. PEG tube. 5. Dysphagia. 6. Hypothyroidism. 7. Urinary tract infection, resolved. 8. Intellectual disability, severe. 9. Pseudomonas, presently on Levaquin 500 b.i.d. 10. Enterococcus, presently on cefepime a gram q.8 hours to finish on Sunday 2 o'clock. 11. History of sinus bradycardia. 12. COVID-19 ruled out with two negative tests, the last one being this past Sunday. 13. Status post extubation in ICU. 14. Lactobacillus. 15. Continue to monitor the patient for anemia. 16. Continue tube feedings. 17. Deep venous thrombosis prophylaxis. 18. The patient will be discharged to [facility] tomorrow after 2 o' clock dosing of cefepime. PS: The patient was weaned off his Supplemental oxygen and his Oxygen sats are 92-95 % off the oxygen !! Job ID: [id number] MTDD
[2019-09-18] MEDS: Simethicone Chewable 80 MG TAB PER TUBE SCH ×3 (11:40→21:42)
[2019-09-19] MEDS: Cefepime 1 GM in Sodium Chloride 0.9% 100 ML IVPB SCH ×2 (05:01→12:01)
[2019-09-19] MEDS: Levothyroxine Sodium 50 MCG TAB PER TUBE SCH (05:04)
[2019-09-19] MEDS: Folic Acid 1 MG TAB PER TUBE SCH (09:13)
[2019-09-19] MEDS: Pantoprazole 40 MG GRANULES PACKET PER TUBE SCH (09:13)
[2019-09-19] MEDS: Senokot S 8.6-50 MG TAB PER TUBE SCH (09:13)
[2019-09-19] MEDS: Floranex Packet PER TUBE SCH (09:15)
[2019-09-19] MEDS: Lacosamide 50 mg Tablet PER TUBE SCH (09:16)
[2019-09-19] MEDS: levETIRAcetam 500 mg/5 ml Oral Solution PER TUBE SCH (09:17)
[2019-09-19] MEDS: Polyethylene Glycol 3350 17 GM Packet PER TUBE SCH (09:18)
[2019-09-19] MEDS: Simethicone Chewable 80 MG TAB PER TUBE SCH (09:19)
[2019-09-19 09:28] VITALS: BP 109/60; TEMP 97.4
[2019-09-19] MEDS: Nystatin Powder 15 GM BOT TOP SCH (09:50)
--- NOTE | 2019-09-19 12:56 | DIS ---
DATE OF ADMISSION: 09/10/2019 DATE OF DISCHARGE: 09/19/2019 HOSPITAL COURSE: The patient is a well-developed, well-nourished 44-year-old severely mentally challenged white male. He has been living at [facility] for some time now. Unfortunately, he became hypoxic, was transferred to [facility], where he was found to be in respiratory failure. He was diagnosed with septic shock and admitted to the intensive care unit. He required intubation, IV pressors, and IV antibiotics. Eventually, he was extubated and stabilized. He was found to have left lower lobe pneumonia, which developed into a bilateral pneumonia. This was thought to be attributed to aspiration. Unfortunately, he also had a polymicrobial cystitis. These two infections were treated with cefepime 1 g q.8 hours and Levaquin 500 mg daily. He finishes his full 10-day course today and is ready for transfer back to [facility] facility after lunch. PHYSICAL EXAMINATION: VITAL SIGNS: Today reveal blood pressure 109/60, respirations 16-20, O2 saturation 92% to 95% on room air, T-max 97.4, pulse 75. GENERAL: This is a well-developed, well-nourished slightly obese 44-year-old white male, mainly is in bed and has to be moved with a Zeke lift. HEENT: Reveals normocephalic and nontraumatic cranium. Pupils are equal, round, and reactive. Extraocular movements are intact. Nose and throat are slightly dry. NECK: Supple without masses, nodes, or bruits. CHEST: Clear to auscultation. No rales, no rhonchi, no wheezes are heard. Rare cough is now noted. HEART: Reveals a regular rate and rhythm without murmurs, gallops, or rubs. ABDOMEN: Obese, soft, nontender without organomegaly. Normal bowel sounds are noted. No rebound or guarding is noted. PEG tube, which has been replaced, still functioning very well, is clean and dry. : Deferred. EXTREMITIES: Reveal no clubbing, cyanosis, or edema. ASSESSMENT: 1. Recent history of aspiration pneumonia and respiratory failure with bilateral pneumonia with admission to [facility] in [place], [place], in intubation, IV pressors and IV antibiotics. 2. Sepsis, resolved. 3. Replacement of PEG tube with a new tube. 4. Dysphagia. 5. Hypothyroidism. 6. Urinary tract infection, resolved. 7. Intellectual disability, severe. 8. Pseudomonas and Enterococcus, presently on Levaquin 500 mg daily, which ends today and cefepime 1 g q.8 hours which finished today at noon. 9. History of sinus bradycardia. 10. COVID-19 ruled out on admission to [facility] and a second COVID-19 ruled out this past Sunday when the patient had seizure activity. 11. Status post extubation from the ICU at [facility]. 12. Lactobacillus. 13. Continue to monitor the patient for anemia. 14. Continue tube feedings with formula of choice at [facility]. The patient has been on Jevity 1.5 95 mL an hour with the patient's feedings held 3 times a day while he is getting his Dilantin. 15. Seizure activity this past Sunday and the patient presently is on Dilantin 200 mg t.i.d. for which the tube feedings are being held 1-2 hours before and 2 hours afterwards. 16. Dilantin level drawn this morning, still pending new level. The patient is being discharged to [facility] for return to his home there today about 12:30. 17. The patient is not on supplemental oxygen since yesterday. He is saturating 90-95% off oxygen. DISCHARGE MEDICATIONS: Will include the followin. Tylenol 650 per tube q.6 hours p.r.n. 2. Floranex 1 g daily. 3. Dulcolax 10 mg per rectum p.r.n. 4. Vitamin D3 of 2000 units per tube twice a day. 5. Folic acid 1 mg per tube daily. 6. Vimpat 200 mg per tube b.i.d. 7. Keppra 500 mg per tube b.i.d. 8. Levothyroxine 50 mcg per tube q.a.m. at 6:00. 9. Triple antibiotic ointment for wound care p.r.n. 10. Mycostatin powder topically b.i.d. p.r.n. 11. Protonix 40 mg per tube b.i.d. 12. Diazepam rectal gel per rectum p.r.n. seizures. 13. Robinul, which is glycopyrrolate 1 mg t.i.d. 14. Fycompa 12 mg per tube at bedtime. 15. Dilantin liquid 200 mg per tube t.i.d. 16. MiraLAX 17 g per tube daily. 17. Senokot-S 1 b.i.d. 18. Mylicon chewable 160 mg per tube t.i.d. I did spend more than 40 minutes and discharge for this patient to be returned back to [facility]. Job ID: [id number]
== END 2019-09-19 13:50 | disposition home or self-care (01) | DRG 177 ==
LOC: NAV ACUTE 16:04
PROVIDERS: ADMIT Family Medicine; ATTEND Family Medicine
DX: J69.0 Pneumonitis due to inhalation of food and vomit (principal); J96.01 Acute respiratory failure with hypoxia; N30.00 Acute cystitis without hematuria; E03.9 Hypothyroidism, unspecified; F79 Unspecified intellectual disabilities; R13.10 Dysphagia, unspecified; R00.1 Bradycardia, unspecified; D64.9 Anemia, unspecified; J15.1 Pneumonia due to Pseudomonas; K21.9 Gastro-esophageal reflux disease without esophagitis; M19.90 Unspecified osteoarthritis, unspecified site; G40.909 Epilepsy, unspecified, not intractable, without status epilepticus; G80.9 Cerebral palsy, unspecified; M81.0 Age-related osteoporosis without current pathological fracture; Z93.1 Gastrostomy status; Z90.49 Acquired absence of other specified parts of digestive tract; Z88.8 Allergy status to other drugs, medicaments and biological substances
CPT/HCPCS: 36415; 71045; 80048; 80053; 80185; 81001; 83605; 85025; J0692; J2060; J2997; J3490; J7620; Q2009; U0001